=== PATIENT | male | born 1995 | race Two or more races ===

== ENCOUNTER 2018-02-13 09:47 | Emergency (ER) | payer MEDICAID ==
[~2018-02-13] VITALS: Ht 182.9 cm; Wt 89.8 kg
--- NOTE | 2018-02-13 10:10 | NUR ---
PT BIBSELF C/O ASTHMA EXACERBATION THIS MORNING. PT ON MONITOR IN BED 7 WITH FAMILY AT BEDSIDE. WILL CONTINUE TO MONITOR.
[2018-02-13] MEDS ORDERED: predniSONE 20 MG TABLET ONE (10:12)
[2018-02-13] MEDS ORDERED: IPRATROPIUM NEB FS 0.5 MG/2.5 ML AMPUL.NEB ONE (10:18)
[2018-02-13] MEDS ORDERED: ALBUTEROL FS 2.5 MG/0.5 ML VIAL.NEB ONE (10:18)
[2018-02-13] MEDS ORDERED: predniSONE 20 MG TABLET PO ONE (10:30)
[2018-02-13] MEDS ORDERED: ALBUTEROL FS 2.5 MG/3 ML VIAL.NEB CONTNEB ONE (10:30)
[2018-02-13] MEDS ORDERED: IPRATROPIUM NEB FS 0.5 MG/2.5 ML AMPUL.NEB NEB ONE (10:30)
--- NOTE | 2018-02-13 11:28 | NUR ---
Patient discharged to home in stable condition. Written and verbal after care instructions given. Patient verbalizes understanding of instruction. PT AMBULATORY WITH STEADY GAIT.
[2018-02-13 11:30] VITALS: BP 137/91
== END 2018-02-13 11:30 | disposition home or self-care (01) ==
LOC: ER 09:58
DX: J45.901 Unspecified asthma with (acute) exacerbation (principal)
CPT/HCPCS: 71045-TC; A4606; Z7610

== ENCOUNTER 2018-05-20 13:42 | Emergency (ER) | payer MEDICAID ==
[~2018-05-20] VITALS: Ht 182.9 cm; Wt 94.3 kg
[2018-05-20 13:42] VITALS: BP 135/74
[2018-05-20] MEDS ORDERED: DEXAMETHASONE 4 MG TABLET ONE (16:00)
[2018-05-20] MEDS ORDERED: DEXAMETHASONE 1 MG TABLET ONE (16:00)
[2018-05-20] MEDS ORDERED: DEXAMETHASONE 1 MG TABLET PO ONE (16:00)
== END 2018-05-20 16:04 | disposition home or self-care (01) ==
LOC: ER 13:45
DX: J02.9 Acute pharyngitis, unspecified (principal); R10.13 Epigastric pain; J45.909 Unspecified asthma, uncomplicated
CPT/HCPCS: 99283; A4606; J8540 ×2

== ENCOUNTER 2024-01-30 11:14 | Emergency (ER) | payer MEDICAID ==
[~2024-01-30] VITALS: Ht 182.9 cm; Wt 90.7 kg
[2024-01-30 11:15] VITALS: BP 132/84; TEMP 98.3
[2024-01-30 12:09] VITALS: O2SAT 99
[2024-01-30] MEDS ORDERED: BENZ-13 PO (12:13)
== END 2024-01-30 12:15 | disposition home or self-care (01) ==
LOC: ER 11:19
DX: J06.9 Acute upper respiratory infection, unspecified (principal); B97.89 Other viral agents as the cause of diseases classified elsewhere; J45.909 Unspecified asthma, uncomplicated